=== PATIENT | female | born 1990 ===

== ENCOUNTER → 2022-04-14 | Outpatient (CLI) | payer OTHER ==
[2022-04-20 14:10] LABS: HPV 16 Negative (Negative); HPV 18 Negative (Negative); HPV OTHER HR TYPES Negative (Negative)
== END | disposition home or self-care (01) ==
LOC: LAB 08:15 → LAB SHORT 08:15
PROVIDERS: Nurse Practitioner Family
DX: Z01.419 Encounter for gynecological examination (general) (routine) without abnormal findings (principal)
CPT/HCPCS: 87624; G0145